=== PATIENT | female | born 1950 | race Hispanic/Latino ===

== ENCOUNTER 2020-02-20 08:00 | Observation (INO) | payer MEDICARE ==
[2020-02-16 09:23] LABS: BASOPHILS # (AUTO) 0.1 (0.0-0.1); BASOPHILS % 0.5 % (0.0-1.0); EOSINOPHILS # (AUTO) 0.2 (0.0-0.4); EOSINOPHILS % 2.4 % (0.0-6.0); HEMATOCRIT 39.6 % (34.2-44.1); HEMOGLOBIN 12.5 g/dL (12.0-16.0); LYMPHOCYTES # (AUTO) 2.9 (1.0-3.2); LYMPHOCYTES % 30.1 % (18.0-39.1); MEAN CORPUSCULAR HEMOGLOBIN 27.2 pg (28-32); MEAN CORPUSCULAR HGB CONC 31.6 g/dL (31-35); MEAN CORPUSCULAR VOLUME 86.1 fL (81-99); MONOCYTES # (AUTO) 0.7 (0.2-0.8); MONOCYTES % 6.8 % (4.4-11.3); NEUTROPHILS # (AUTO) 5.7 (2.1-6.9); NEUTROPHILS % 59.9 % (38.7-80.0); PLATELET COUNT 294 x10e3/uL (140-360); RED CELL DISTRIBUTION WIDTH 13.3 % (11.7-14.4)
[2020-02-16 09:50] LABS: ALANINE AMINOTRANSFERASE 37 IU/L (0-55); ALBUMIN 4.2 g/dL (3.5-5.0); ALBUMIN/GLOBULIN RATIO 1.3 (0.8-2.0); ALKALINE PHOSPHATASE 140 IU/L (40-150); ANION GAP 15.2 mmol/L (8-16); BLOOD UREA NITROGEN 10 mg/dL (7-26); BUN/CREATININE RATIO 16 (6-25); CALCIUM 8.5 mg/dL (8.4-10.2); CARBON DIOXIDE 27 mmol/L (22-29); CHLORIDE 104 mmol/L (98-107); CREATININE, SERUM 0.63 mg/dL (0.57-1.11); EST GLOMERULAR FILTRATION RATE > 60 ML/MIN (60-); GLUCOSE 88 mg/dL (74-118); POTASSIUM 4.2 mmol/L (3.5-5.1); SODIUM 142 mmol/L (136-145)
--- NOTE | 2020-02-16 10:03 | Diagnostic Imaging Report ---
EXAMINATION: CHEST 2 VIEWS INDICATION: Preop ^PRE OP COMPARISON: None FINDINGS: TUBES and LINES: None. LUNGS: Lungs are well inflated. Lungs are clear. There is no evidence of pneumonia or pulmonary edema. PLEURA: No pleural effusion or pneumothorax. HEART AND MEDIASTINUM: The cardiomediastinal silhouette is unremarkable. BONES AND SOFT TISSUES: No acute osseous lesion. Soft tissues are unremarkable. UPPER ABDOMEN: No free air under the diaphragm. IMPRESSION: No acute thoracic abnormality. Signed by: Dr. Nacho Pelayo M.D. on 02/16/2020 10:00 AM
[~2020-02-20] VITALS: Ht 154.9 cm; Wt 54.0 kg
[~2020-02-20 08:00] MED LIST: ASPIRIN EC81 MG PO; ATORVASTATIN CA20 MG PO; METOPROLOL SUCC25 MG PO
[2020-02-20] MEDS ORDERED: KETOROLAC TROMETHAMINE 30 MG/ML VIAL IM PRN (09:15)
[2020-02-20] MEDS ORDERED: ZOLPIDEM TARTRATE 5 MG TAB PO PRN (09:15)
[2020-02-20] MEDS ORDERED: DOCUSATE SODIUM 100 MG CAP PO PRN (09:15)
[2020-02-20] MEDS ORDERED: DIPHENHYDRAMINE HCL 25 MG CAP PO PRN (09:15)
[2020-02-20] MEDS: LACTATED RINGER'S 1,000 ML IV SCH ×2 (09:15→17:44)
[2020-02-20] MEDS ORDERED: PROMETHAZINE HCL (IM) 25 MG/ML VIAL IM PRN (09:15)
[2020-02-20] MEDS ORDERED: CEFAZOLIN SOD 1 GM/NS 50ML 50 ML IV ONE ×2 (09:19→09:38)
[2020-02-20] MEDS ORDERED: BUPIVACAINE 0.25% 30ML SDV INJ ONE (10:37)
[2020-02-20] MEDS ORDERED: ESTROGENS CONJUGATED VAGINAL CR 45 GM TUBE PV ONE (10:37)
[2020-02-20] MEDS ORDERED: LIDOCAINE 1% W/EPINEPHRINE 20 ML VIAL ONE (12:16)
[2020-02-20] MEDS ORDERED: MIDAZOLAM HCL 2 MG/2 ML VIAL ONE (13:06)
[2020-02-20] MEDS ORDERED: FENTANYL CITRATE/PF 100MCG/2 ML INJ ONE (13:06)
[2020-02-20 15:10] VITALS: BP 116/55
--- NOTE | 2020-02-20 15:14 | NUR ---
Received report from MANUEL Flores in PACU at 1443. Patient arrived to unit at 1455. Patient was oriented to room, procedures, and plan of care. Patient call light in reach and bed in lowest position. Patient IV is C/D/I. Patient was assessed and has no other concerns. Patient had no other issues or complaints at this time.
[2020-02-20] MEDS ORDERED: METOPROLOL TART25 MG PO (15:46)
[2020-02-20 16:22] VITALS: BP 116/55
[2020-02-20] MEDS: MEPERIDINE HCL INJ 25 MG/ML VIAL IV PRN (17:44)
--- NOTE | 2020-02-20 19:10 | NUR ---
Received the pt in report.aaox3.no resp.distress,tele in place.robles and vag.pack in place.iv fluid running to right ac #20 g.call light within reach.pt denied any needs.
[2020-02-20] MEDS ORDERED: PROPOFOL IV EMULSION 10 MG/ML 20 ML VIAL ONE (19:23)
[2020-02-20] MEDS ORDERED: SEVOFLURANE INHAL SOLN 250 ML PEN BTL ONE (19:23)
[2020-02-20] MEDS ORDERED: NEOSTIGMINE 1 MG/ML 10ML VIAL ONE (19:23)
[2020-02-20] MEDS ORDERED: ONDANSETRON HCL INJ 2MG/ML 2ML 2 MG/ML VIAL ONE (19:23)
[2020-02-20] MEDS ORDERED: DEXAMETHASONE SOD PHOS INJ 4 MG/ML VIAL ONE (19:23)
[2020-02-20] MEDS ORDERED: GLYCOPYRROLATE INJ 0.2 MG/ML VIAL ONE (19:23)
[2020-02-20] MEDS ORDERED: KETOROLAC TROMETHAMINE 30 MG/ML VIAL ONE (19:23)
[2020-02-20] MEDS ORDERED: ROCURONIUM BROMIDE 10 MG/ML 5ML VIAL IV ONE (19:23)
[2020-02-20] MEDS ORDERED: LIDOCAINE HCL 2% LOCAL INJ 5 ML SDV VIAL INJ ONE (19:23)
[2020-02-20] MEDS ORDERED: EPHEDRINE SULFATE INJ 50 MG/ML VIAL ONE (19:23)
[2020-02-20 20:00] VITALS: BP 111/59
[2020-02-20 21:00] VITALS: BP 111/59
[2020-02-20] MEDS: HYDROCODONE/APAP 5MG-325MG TAB PO PRN (21:35)
[2020-02-21] VITALS: BP 116/53
[2020-02-21] MEDS: MEPERIDINE HCL INJ 25 MG/ML VIAL IV PRN (00:51)
[2020-02-21] MEDS: LACTATED RINGER'S 1,000 ML IV SCH ×2 (01:37→09:15)
[2020-02-21 04:00] VITALS: BP 100/49
[2020-02-21 05:29] LABS: BASOPHILS % 0.3 % (0.0-1.0); EOSINOPHILS # (AUTO) 0.1 (0.0-0.4); EOSINOPHILS % 0.6 % (0.0-6.0); HEMATOCRIT 32.1 % (34.2-44.1); HEMOGLOBIN 10.2 g/dL (12.0-16.0); LYMPHOCYTES # (AUTO) 2.5 (1.0-3.2); LYMPHOCYTES % 17.9 % (18.0-39.1); MEAN CORPUSCULAR HEMOGLOBIN 26.9 pg (28-32); MEAN CORPUSCULAR HGB CONC 31.8 g/dL (31-35); MEAN CORPUSCULAR VOLUME 84.7 fL (81-99); MONOCYTES # (AUTO) 1.3 (0.2-0.8); MONOCYTES % 8.9 % (4.4-11.3); NEUTROPHILS % 71.8 % (38.7-80.0); PLATELET COUNT 243 x10e3/uL (140-360); RED BLOOD COUNT 3.79 x10e6/uL (3.6-5.1); RED CELL DISTRIBUTION WIDTH 13.2 % (11.7-14.4)
--- NOTE | 2020-02-21 07:05 | NUR ---
Bed side shift report given to oncoming RN.stable condition.
[2020-02-21] MEDS: HYDROCODONE/APAP 5MG-325MG TAB PO PRN ×2 (07:07→14:30)
[2020-02-21 08:00] VITALS: BP 111/53
[2020-02-21 09:00] VITALS: BP 111/53
--- NOTE | 2020-02-21 10:30 | NUR ---
robles cath and vaginal packing removed. patient ambulated to restroom. small amount of red blood when wiping noticed. patient provided liliana pad. will monitor for further bleeding.
[2020-02-21 12:30] VITALS: BP 103/56
--- NOTE | 2020-02-21 14:28 | NUR ---
DENISE EXPLAINED TO PT , SIGNED BY PT AND PLACED IN CHART COPY OF DENISE GIVEN TO PT
--- NOTE | 2020-02-22 01:00 | Operative Report ---
DATE OF PROCEDURE: 02/20/2020 SURGEON: Dawn Mayen MD PREOPERATIVE DIAGNOSIS: Pelvic organ prolapse, genuine stress incontinence. POSTOPERATIVE DIAGNOSIS: Pelvic organ prolapse, genuine stress incontinence. PROCEDURE: Vaginal hysterectomy, sacrospinous colpopexy, anterior-posterior repair, and transobturator tape and cystoscopy. SURGEON: Dawn Mayen MD ASSISTANTS: 1. Carla Alan MD. 2. Sharon Sotelo MD. DESCRIPTION OF PROCEDURE: The patient was taken to the OR. General anesthesia was induced. She was prepped and draped in normal sterile fashion, placed in dorsal lithotomy position. After examination under anesthesia, weighted speculum was placed inside the vagina. Cervix was grasped with single-tooth tenaculum. Subvaginal tissue was injected with Marcaine with epinephrine around the cervix and a circumferential vaginal skin incision was made with a scalpel. Pouch of Sean was opened with Metzenbaum scissors and a weighted speculum was advanced in the pouch of Sean using the uterosacral ligaments. Both sides were also held with LigaSure. Vessels were occluded and the pedicle was cut. The same was repeated on the other side. Uterine vessels on both sides were cauterized and cut. Following this, the vaginal uterine fundus was brought outside the enteritis with a finger around. Anterior pouch was opened with Metzenbaum scissors and the LigaSure was placed on each side of the uterus at the level of the apex of the broad ligament. The pedicle was secured and cut. The same was repeated on the other side and the uterus was freed, sent to pathology. Tubes and ovaries looked normal. Following this, the vagina in the midline was held anteriorly with 2 hemostats. The vagina was dissected off the bladder using Metzenbaum scissors and push-spread technique. The vagina anteriorly was opened in the midline and 2 flaps of the vagina were dissected off the underlying tissue using both sharp and blunt dissection. Using the index finger, the pelvic fascia was pierced and ischial spine and sacrospinous ligament was palpated using a Vicryl suture. Capio needle sorto was used to throw the Vicryl suture into the sacrospinous ligament. The other end was hitched to the vaginal vault. The pubocervical ligaments on each side were approximated using Vicryl 0. Excess vaginal skin was trimmed off using curved Aguirre scissors and the vagina was closed with interlocking stitches of Vicryl 0. Following that pubocervical ligament on each side of the pelvis was approximated using Vicryl 0. Excess vaginal skin was trimmed off anterior using curved Aguirre scissors and the vagina was closed with interlocking stitches of Vicryl 0. The transobturator tape was performed at that stage with a Trevino catheter was placed inside the bladder revealed clear urine and extremity was held with an Allis clamp and UVJ was held with another Allis clamp. The subvaginal tissue in the midline anteriorly was injected with Marcaine with epi. Vaginal skin incision was made at the level of the mid urethra. Vagina was dissected off the urethra using Metzenbaum scissors using the push-spread technique and entry points were made at the level of the clitoris and the intercrural line using the scalpel and using the Obtryx trocar. The trocar was inserted and guided to the outside using the index finger. The same was repeated on the other side. The Obtryx sling was threaded on the trocars and the trocars were removed and the sling was laid down flat at the level of the mid urethra. Cystoscopy was performed and showed normal bladder and urethra. Cystoscopy was removed and bladder was drained. Next, the plastic cover of the tape was excised and excess tape was also trimmed at the level of the entry points and the entry points were approximated using Dermabond. The vagina was closed with Vicryl 2-0 and continuous sutures. The sacrospinous ligament sutures were tied and the vaginal vault was elevated. Following this procedure, repair was performed and posterior vaginal wall was injected with Marcaine with epinephrine 0.25%, 2 Allis clamps were applied about 1 cm from the fourchette on each side and the mucocutaneous junction between the Allis clamp was removed using curved Aguirre scissors. The vagina was dissected off the perineal muscles using the Metzenbaum scissors using the push-spread technique and the vagina was opened in the midline using the same instrument. Two flaps of the vagina were dissected off the underlying muscles using both sharp and blunt dissection. Perineal muscles were approximated using Vicryl 0. Excess vaginal skin was trimmed off using curved Aguirre scissors and the vagina was closed with interlocking stitches of Vicryl 0 and subcu for the perineal skin. The rectal exam revealed intact rectum. The patient tolerated the procedure well. Vaginal pack was inserted. Lap, instrument, and needle counts were correct x2 at the end of the procedure. Dawn Mayen MD DD/MAYI /[id number]
--- OUTSIDE RECORDS SUMMARY | 2020-02-25 15:16 | XMS REPORT | Continuity of Care Document ---
Author Author [id number] Address Unknown Phone Unavailable Care Team Providers Care Cold Patcher Name Role Phone [employer] Unavailable Un available Problems Problem Status Onset Date Classification Date Reported Comments Source Encounter for screening mammogram for ma lignant neoplasm of breast 03/18/2018 09/29/2018 [facility] [place] Z92.89 - PERSONAL HISTORY OF OTHER MEDI Active 02/24/2018 [facility] [place] Discharge Diagnosis: Paresthesias 07/02/2014 07/04/2014 [facility] Discharge Diagnosis: Foot pain 07/02/2014 07/04/2014 [facility] RT FOOT PAIN Active 07/02/2014 [facility] Angle-closure glaucoma (disorder) [facility] [place] Swelling of first metatarsophalangeal ezra int of hallux (disorder) Active Prob yvonne 02/10/2020 [facility] [place] Mixed hyperlipidemia (disorder) Active Problem 04/2020 [facility] [place] Numbness of lower limb (finding) Active Problem 04/2020 [facility] [place] Sinus bradycardia (disorder) A ctive Problem 04/2020 [facility] [place] Vaginal lump (finding) Active Problem 02/10/2020 [facility] [place] Acute angle-closure glaucoma (disorder) Active Problem 10/14/2017 [facility] Eruption of skin (disorder) Ac tive Problem 04/2020 [facility] Low back pain (disorder) Active Problem 02/10/2020 [facility] Neck pain (finding) Active Problem 02/10/2020 [facility] Ganglion cyst of left hand (disorder) Active Problem 04/2020 [facility] Peripheral arterial insufficiency (disorder) Active Problem 02/10/2020 [facility] Medications Medication Details Route Status Patient Instructions Ordering Provider Order Date Source atorvastatin 20 mg oral tablet 20 mg = 1 tab, PO, Bedtime, # 30 tab, 0 Refill(s) Active 06/19/2019 [facility] Aspirin 81 MG Enteric Coated Tablet 81 mg = 1 tab, PO, Daily, # 90 tab, 3 Refill(s) Active 06/19/2019 [facility] Triamcinolone Acetonide 1 MG/ML Topical Cream 1 appl, TOP, BID, apply a thin film facial rash, # 30 gm, 0 Refill(s), Pharmacy: [id number] Active 01/24/2019 [facility] ciprofloxacin 500 mg oral tablet 500 mg = 1 tab, PO, BID, # 20 tab, 0 Refill(s), Pharmacy: [id number] Active 07/14/2018 [facility] Metronidazole 500 MG Oral Tablet 500 mg = 1 tab, PO, TID, # 30 tab, 0 Refill(s), Pharmacy: [facility] [id number] Active 07/14/2018 [facility] gabapentin 300 MG Oral Capsule [Neurontin] 300 mg = 1 cap, PO, TID, # 30 cap, 0 Refill(s) Active 07/02/2014 [facility] tramadol hydrochloride 50 MG Oral Tablet [Ultram] 50 mg = 1 tab, PO, Q4H, pain, # 20 tab, 0 Refill(s) Active 07/02/2014 [facility] Ondansetron 4 mg, Route: IVP, Drug form: INJ, ONCE, Dosing Weight 58.182, kg, Priority: STAT, Start date: 07/02/14 15:40:00, Stop date: 07/02/14 15:40:00 Inactive 07/02/2014 [facility] Morphine 4 mg, Route: IVP, Jai g form: INJ, ONCE, Dosing Weight 58.182, kg, Priority: STAT, Start date: 07/02/14 15:39:00, Stop date: 07/02/14 15:39:00 Inactive 07/02/2014 [facility] Acetaminophen 325 MG / Hydrocodone Leeanna trate 10 MG Oral Tablet [[place] 10/325] 1 tab, Route: PO, Dosing Weight 58.182, kg, ONCE, Start date: 07/02/14 9:59:00, Stop date: 07/02/14 9:59:00 Inactive 07/02/2014 [facility] Allergies, Adverse Reactions, Alerts Substance Category Reaction Severity Reaction type Status Date Reported Comments Source No Known Medication Allergies Assertion Drug aller [facility] NKFA Assertion Food allergy Active [facility] Immunizations No Data Provided for This Section Results Order Name Results Value Reference Range Date Interpretation Comments Source CHEM PANEL A/G Ratio 1.0 0.7 - 1.6 07/02/2014 [facility] CHEM PANEL Globulin 4.1 2.0 - 4.0 07/02/2014 [facility] CHEM PANEL Potassium Lvl 3.7 3.5 - 5.1 07/02/2014 [facility] CHEM PANEL Sodium Lvl 139 135 - 145 07/02/2014 [facility] CHEM PANEL Chloride Lvl 103 95 - 109 07/02/2014 [facility] CHEM PANEL eGFR 93 07/02/2014 <sup>1</sup>Result Comment: The eGFR is calculated using the CKD-EPI formula. In most young, healthy individuals the eGFR will be >90 mL/min/1.73m2. The eGFR declines with age. An eGFR of 60-89 may be normal in some populations, particularly the elderly, for whom the CKD-EPI formula has not been extensively validated. Use of the eGFR is not recommended in the following populations:& lt;br/>
Individuals with unstable creatinine concentrations, including patients and those with serious co-morbid conditions.

Patients with extremes in muscle mass or diet.

The data above are obtained from the National Kidney Disease Education Program (NKDEP) which additionally recommends that when the eGFR is used in patients with extremes of body mass index for purposes of drug dosing, the eGFR should be multiplied by the estimated BMI. [facility] CHEM PANEL Albumin Lvl 4.1 3.5 - 5.0 07/02/2014 [facility] CHEM PANEL B/C Ratio 20 6 - 25 07/02/2014 [facility] CHEM PANEL Calcium Lvl 8.5 8.5 - 10.5 07/02/2014 [facility] CHEM PANEL AGAP 8.7 10.0 - 20.0 07/02/2014 [facility] CHEM PANEL Glucose Lvl 81 70 - 99 07/02/2014 <sup>2</sup>Interpretive Data: Adult ref erence range values reflect the clinical guidelines
of the [place] [employer]. [facility] CHEM PANEL CO2 31 24 - 32 07/02/2014 [facility] CHEM PANEL Creatinine Lvl 0.7 0.5 - 1.4 07/02/2014 [facility] CHEM PANEL BUN 14 7 - 22 07/02/2014 [facility] CHEM PANEL Total Protein 8.2 6.4 - 8.4 07/02/2014 [facility] CHEM PANEL Alk Phos 105 39 - 136 07/02/2014 [facility] CHEM PANEL Bili Total 0.3 0.2 - 1.3 07/02/2014 [facility] CHEM PANEL AST 17 0 - 37 07/02/2014 [facility] CHEM PANEL ALT 19 0 - 65 07/02/2014 [facility] HEMATOLOGY Basophils # 0.1 0.0 - 0.2 07/02/2014 [facility] HEMATOLOGY Monocytes 7.1 2.0 - 12.0 07/02/2014 [facility] HEMATOLOGY Lymphocytes 37.2 20.0 - 40.0 07/02/2014 [facility] HEMATOLOGY Eosinophils 0.9 0.0 - 4.0 07/02/2014 [facility] HEMATOLOGY Segs 54.1 45.0 - 75.0 07/02/2014 [facility] Lymphocytes # 3.0 1.0 - 5.5 07/02/2014 [facility] Monocytes # 0.6 0.0 - 0.8 07/02/2014 [facility] HEMATOLOGY Basophils 0.7 0.0 - 1.0 07/02/2014 [facility] Segs-Bands # 4.4 1.5 - 8.1 07/02/2014 [facility] Eosinophils # 0.1 0.0 - 0.5 07/02/2014 [facility] INR 0.98 0.85 - 1.17 07/02/2014 <sup>3</sup>Interpretive Data: RECOMMEND ED RANGES FOR PROTIME INR:
2.0- 3.0 for most medical and surgical thromboembolic states.
2.5-3.5 for artificial heart valves and recurrent embolism.

INR SHOULD BE USED ONLY FOR PATIENTS ON STABLE ANTICOAGULANT THERAPY. [facility] HEMATOLOGY PT 13.0 12.0 - 14.7 07/02/2014 [facility] Platelet 304 133 - 450 07/02/2014 [facility] MPV 7.2 7.4 - 10.4 07/02/2014 [facility] Hgb 13.6 12.0 - 16.0 07/02/2014 [facility] RBC 4.76 4.20 - 5.40 07/02/2014 [facility] HEMATOLOGY MCV 86.0 80.0 - 98.0 07/02/2014 [facility] HEMATOLOGY MCH 28.6 27.0 - 31.0 07/02/2014 [facility] HEMATOLOGY Hct 40.9 36.0 - 48.0 07/02/2014 [facility] HEMATOLOGY RDW 12.6 11.5 - 14.5 07/02/2014 [facility] MCHC 33.3 32.0 - 36.0 07/02/2014 [facility] WBC 8.1 3.7 - 10.4 07/02/2014 [facility] Pathology Reports No Data Provided for This Section Diagnostic Reports Report Value Date Source Breast Mammo Scrn JACKLYN incl CAD MA AMENDMENT: 04/01/2018 Ridge Aguirre M.D. Previous outside mammograms dated 03/09/2016 have been received. No significant change from previous exam noted. Multiple bilateral oval masses are present and not significantly changed. Annual screening mammogram is recommended. Amended BI-RADS: 2 Benign letter sent: BI-RADS 1/2 Dense BILATERAL DIGITAL SCREENING MAMMOGRAM WITH CAD: 03/12/2018 CLINICAL: /Z12.31 Encounter For Screening Mammogram For Malignant Neoplasm Of Breast. Current study was evaluated with a Computer Aided Detection (CAD) system. COMPARISON:No prior exams were available for comparison. TECHNIQUE: Mammographic views were obtained using digital acquisition. Current study was also evaluated with a Computer Aided Detection (CAD) system. FINDINGS: The tissue of both breasts is heterogeneously dense, which could obscure detection of small masses. There is a 1.1 cm oval mass with an indistinct margin and coarse calcifications in the right breast at 12 o'clock anterior depth. No other significant masses, calcifications, or other findings are seen in either breast. IMPRESSION: INCOMPLETE: NEEDS ADDITIONAL IMAGING EVALUATION RECOMMENDATION:The 1.1 cm oval mass in the right breast is indeterminate. Ultrasound with possible diagnostic mammography are recommended. This exam was interpreted at [id number] at [facility] Location. Professional services are provided by the [employer] [facility] Division of Diagnostic Imaging. Elen adhikari/kumar:03/23/2018 19:26:03 Certified Wellness Program Coordinator(s): Ravi Garces letter sent: BI-RADS 0 Mammogram BI-RADS: 0 Indeterminate 03/12/2018 [facility] [place] Extremity Lower uni CTA CTA RI T LOWER EXTREMITY WITH CONTRAST INDICATION: Pain in limb, diminished pulses COMPARISON: None TECHNIQUE: CTA of the right lower extremity was performed after administration of intravenous contrast. Coronal, sagittal, and 3-D reformatted images were utilized. 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 There is three-vessel runoff to the ankle and foot. NONVASCULAR SOFT TISSUE: Unremarkable. BONES: No acute bony abnormalities are visualized. IMPRESSION: No appreciable arterial stenosis of the right lower extremity. There is three- vessel runoff to the foot. SL: 16 07/02/2014 [facility] Ext Lower Arterial Doppler unilat US Please refer to the heart lab report. 07/02/2014 [facility] Foot series Examination: Right foot, 3 views History: Pain in limb Comparison: None. Findings: Multiple views of the right foot show no acute bony fracture or joint dislocation. 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 Soft tissues are unremarkable. IMPRESSION: No acute bony abnormality of the right foot. SL: 07/02/2014 [facility] Consultation Notes No Data Provided for This Section Discharge Summaries No Data Provided for This Section History and Physicals No Data Provided for This Section Vital Signs Vital Sign Value Date Comments Source Systolic (mm Hg) 133 06/19/2019 [facility] Diastolic (mm Hg) 70 06/19/2019 [facility] Heart Rate 73 06/19/2019 [facility] Temperature Oral (F) 97.9 F 06/19/2019 [facility] Height 154.94 cm 06/19/2019 [facility] Weight 55.17 06/19/2019 [facility] BMI Calculated 22.98 06/19/2019 [facility] Systolic (mm Hg) 110 01/24/2019 [facility] Diastolic (mm Hg) 58 01/24/2019 [facility] Heart Rate 65 01/24/2019 [facility] Respitory Rate 14 01/24/2019 [facility] Temperature Oral (F) 97.7 F 01/24/2019 [facility] Height 154.94 cm 01/24/2019 [facility] Weight 56.875 01/24/2019 [facility] BMI Calculated 23.69 01/24/2019 [facility] BMI Calculated 24.14 09/27/2018 [facility] Weight 57.955 09/27/2018 [facility] Respitory Rate 14 09/27/2018 [facility] Temperature Oral (F) 98.1 F 09/27/2018 [facility] Heart Rate 69 09/27/2018 [facility] Height 154.94 cm 09/27/2018 [facility] Systolic (mm Hg) 137 09/27/2018 [facility] Diastolic (mm Hg) 62 09/27/2018 [facility] Weight 58.182 07/15/2018 [facility] BMI Calculated 24.24 07/15/2018 [facility] Height 154.94 cm 07/15/2018 [facility] Systolic (mm Hg) 141 07/15/2018 [facility] Diastolic (mm Hg) 69 07/15/2018 [facility] Heart Rate 67 07/15/2018 [facility] Temperature Oral (F) 97.6 F 07/15/2018 [facility] Respitory Rate 14 07/15/2018 [facility] Systolic (mm Hg) 136 07/14/2018 [facility] Diastolic (mm Hg) 64 07/14/2018 [facility] Heart Rate 54 07/14/2018 [facility] Temperature Oral (F) 97.6 F 07/14/2018 [facility] Respitory Rate 14 07/14/2018 [facility] BMI Calculated 24.09 07/14/2018 [facility] Weight 57.841 07/14/2018 [facility] Height 154.94 cm 07/14/2018 [facility] Height 154.94 cm 04/08/2018 [facility] Weight 57.784 04/08/2018 [facility] BMI Calculated 24.07 04/08/2018 [facility] Systolic (mm Hg) 149 04/08/2018 [facility] Diastolic (mm Hg) 74 04/08/2018 [facility] Respitory Rate 14 04/08/2018 [facility] Heart Rate 62 04/08/2018 [facility] Temperature Oral (F) 97.7 F 04/08/2018 [facility] Height 157.48 cm 12/28/2017 [facility] Weight 58.352 12/28/2017 [facility] BMI Calculated 23.53 12/28/2017 [facility] Temperature Oral (F) 97.0 F 12/28/2017 [facility] Respitory Rate 14 12/28/2017 [facility] Systolic (mm Hg) 111 12/28/2017 [facility] Diastolic (mm Hg) 69 12/28/2017 [facility] Heart Rate 64 12/28/2017 [facility] Height 154.94 cm 06/29/2017 [facility] BMI Calculated 23.9 06/29/2017 [facility] Weight 57.386 06/29/2017 [facility] Temperature Oral (F) 97.0 F 06/29/2017 [facility] Respitory Rate 14 06/29/2017 [facility] Systolic (mm Hg) 133 06/29/2017 [facility] Diastolic (mm Hg) 75 06/29/2017 [facility] Heart Rate 78 06/29/2017 [facility] Respitory Rate 18 07/03/2014 [facility] Rate 76 07/03/2014 [facility] Diastolic (mm Hg) 78 07/03/2014 [facility] Systolic (mm Hg) 135 07/03/2014 [facility] Diastolic (mm Hg) 76 07/02/2014 [facility] Systolic (mm Hg) 131 07/02/2014 [facility] Respitory Rate 18 07/02/2014 [facility] Heart Rate 81 07/02/2014 [facility] Systolic (mm Hg) 143 07/02/2014 [facility] Respitory Rate 18 07/02/2014 [facility] Heart Rate 76 07/02/2014 [facility] Diastolic (mm Hg) 72 07/02/2014 [facility] Temperature Oral (F) 97.1 F 07/02/2014 [facility] Temperature Oral (F) 97.8 F 07/02/2014 [facility] Weight 58.182 07/02/2014 [facility] BMI Calculated 24.24 07/02/2014 [facility] Height 154.94 cm 07/02/2014 [facility] Encounters Location Location Details Encounter Type Encounter Number Reason For Visit Attending Provider ADM Date DC Date Status Source [facility] [id number] Eben Austen 07/02/2014 07/03/2014 [facility] Outpatient [id number] BRIAN CARVAJAL 12/02/2016 Active [facility] Outpatient [id number] BRIAN CARVAJAL 02/02/2017 Active [facility] Outpatient [id number] BRIAN CARVAJAL 06/29/2017 Active [facility] [id number] Brian Carvajal 06/29/2017 06/30/2017 [facility] Phone Message [id number] 07/07/2017 07/09/2017 [facility] Outpatient [id number] BRIAN CARVAJAL 12/28/2017 Active [facility] [place] [facility] [id number] Brian Carvajal 12/28/2017 12/29/2017 [facility] [place] Outpt Diag Services [id number] Brian Carvajal 01/25/2018 01/25/2018 [facility] [place] [facility] Primary Care [facility] Phone Message [id number] 02/08/2018 02/10/2018 [facility] [place] Outpt Diag Services [id number] Brian Carvajal 03/12/2018 03/13/2018 [facility] [place] Outpatient [id number] BRIAN CARVAJAL 04/08/2018 Active [facility] [place] [facility] [id number] Brian Carvajal 04/08/2018 04/09/2018 [facility] Outpatient [id number] BRIAN CARVAJAL 07/14/2018 Active [facility] [id number] Brian Carvajal 07/14/2018 07/15/2018 [facility] Outpatient [id number] BRIAN CARVAJAL 07/15/2018 Active [facility] [id number] Brian Carvajal 07/15/2018 07/16/2018 [facility] Outpatient [id number] Brian Carvajal 09/27/2018 Active [facility] [id number] Brian Carvajal 09/27/2018 09/28/2018 [facility] Primary Care [facility] Phone Message [id number] 01/09/2019 01/11/2019 [facility] Outpatient [id number] Brian Carvajal 01/24/2019 Active [facility] [id number] Brian Carvajal 01/24/2019 01/25/2019 [facility] Primary Care [facility] Phone Message [id number] 05/01/2019 05/03/2019 [facility] Outpatient [id number] Brian Carvajal 06/19/2019 Active [facility] Primary Care [facility] Outpatient [id number] Brian Carvajal 06/19/2019 06/20/2019 [facility] Outpatient [id number] Brian Carvajal 10/16/2019 Active [facility] Phone Message [id number] 11/08/2019 11/10/2019 [facility] Outpatient [id number] Zhjarret Susi 11/27/2019 Active [facility] Outpatient [id number] Brian Susi 11/27/2019 Active [facility] Ambulatory Pre-Reg [id number] Brian Susi 11/27/2019 11/27/2019 [facility] Ambulatory Pre-Reg [id number] Brian Susi 11/27/2019 11/27/2019 [facility] Ambulatory Pre-Reg [id number] Brian Susi 01/15/2020 01/15/2020 [facility] Phone Message [id number] 02/07/2020 02/09/2020 [facility] Procedures Procedure Code Date Perfomer Comments Source Appendectomy [id number] 07/01/2018 [facility] [place] Colonoscopy<sup>1</sup> [id number] 03/20/2017 repeat in [address] [facility], [facility] [place] Laser eye surgery<sup>2</sup> [id number] 11/28/[address] [facility], [facility] [place] Angiography [id number] [facility] Assessment and Plan No Data Provided for This Section Plan of Care No Data Provided for This Section Social History Social History Date Source Social History TypeResponse Alcohol Never Exercise Exercise frequency: 3-4 times/week. Exercise type: Walking. Substance Abuse Use: None. Smoking Status Never smoker; Exposure to Tobacco Smoke None; Cigarette Smoking Last 365 Days No; Reg Smoking Cessation Counseling No entered on: 06/19/19 06/19/2019 [facility] Social History TypeResponse Substance Abuse Use: None. Exercise Exercise frequency: 3-4 times/week. Exercise type: Walking. Alcohol Never Smoking Status Never smoker; Exposure to Tobacco Smoke None; Cigarette Smoking Last 365 Days No; Reg Smoking Cessation Counseling No entered on: 09/27/18 09/27/2018 [facility] [place] Social History TypeResponse Smoking Status Never smoker, Exposure to Tobacco Smoke None, Cigarette Smoking Last 365 Days No, Reg Smoking Cessation Counseling No 07/02/2014 [facility] Family History No Data Provided for This Section Advance Directives No Data Provided for This Section Functional Status No Data Provided for This Section
== END 2020-02-21 14:36 | disposition home or self-care (01) ==
LOC: OR 08:00 → PACU V 09:14 → MED/SURG 15:00
PROVIDERS: ADMIT Obstetrics & Gynecology; ATTEND Obstetrics & Gynecology
DX: N81.89 Other female genital prolapse (principal); N39.3 Stress incontinence (female) (male); Z11.59 Encounter for screening for other viral diseases; I10 Essential (primary) hypertension; E78.5 Hyperlipidemia, unspecified
CPT/HCPCS: 36415 ×2; 51992; 57425; 58550; 71046; 80053; 85025 ×2; 88305; 93005; 96361; C1781; G0378 ×2; J0690; J1100; J1885; J2001; J2175 ×2; J2250; J2405; J2704; J2710; J3010; J7121 ×2; U0002; 88307